=== PATIENT | male | born 1930 | race Caucasian/White ===

== ENCOUNTER 2017-04-23 12:29 | Emergency (ER) | payer MEDICARE, OTHER ==
[~2017-04-23] VITALS: Ht 172.7 cm; Wt 90.0 kg
[2017-04-23 12:37] VITALS: BP 229/105; PULSE 78; RESP 18
[2017-04-23 12:52] VITALS: BP 218/102; PULSE 68; RESP 16; O2SAT 97
[2017-04-23 13:21] LABS: AUTOMATED NEUTROPHIL # 4.7 TH/MM3 (1.8-7.7); BASOPHIL # 0.1 TH/MM3 (0-0.2); BASOPHIL % 0.6 % (0.0-2.0); EOSINOPHIL # 0.2 TH/MM3 (0-0.4); HEMATOCRIT 45.5 % (39.0-51.0); HEMOGLOBIN 15.2 GM/DL (13.0-17.0); LYMPH % 41.1 % (9.0-44.0); MEAN CELL VOLUME 92.3 FL (80.0-100.0); MEAN CORPUSCULAR HEMOGLOBIN 30.9 PG (27.0-34.0); MEAN CORPUSCULAR HGB CONC 33.4 % (32.0-36.0); MEAN PLATELET VOLUME 9.6 FL (7.0-11.0); MONOCYTE # 0.8 TH/MM3 (0-0.9); NEUT % 48.3 % (16.0-70.0); PLATELET COUNT 237 TH/MM3 (150-450); RED BLOOD COUNT 4.93 MIL/MM3 (4.50-5.90); RED CELL DISTRIBUTION WIDTH 13.6 % (11.6-17.2); WHITE BLOOD COUNT 9.7 TH/MM3 (4.0-11.0)
--- NOTE | 2017-04-23 13:21 | PD ---
HPI Chief Complaint: Hypertension Time Seen by Provider: 12:47 Travel History International Travel<30 days: No Contact w/Intl Traveler<30days: No Traveled to known affect area: No History of Present Illness HPI 86-year-old male with PMH of DM, HTN presents to the ED for evaluation of high blood pressures. Patient states BP is been elevated for approximately one week. On presentation he denies headaches, dizziness, vision changes, fever, chills, chest pain, palpitations, abdominal pain, nausea, vomiting, lower extremity edema. He states that he was seen at the [place] today. He was there concerning an episode of garbled speech approximately one week ago. Patient states that he was on his knees in the garden pulling weeds. He states that he was otherwise asymptomatic. Symptoms resolved in approximately 20 minutes with rest. PFSH Past Medical History Hx Anticoagulant Therapy: No Arthritis: Yes (OSTEOARTHRITIS ) Cardiovascular Problems: Yes (HTN ) High Cholesterol: Yes Diabetes: Yes Patient Takes Glucophage: Yes Diminished Hearing: No Gastrointestinal Disorders: Yes (BENIGN NEOPLASM LARGE BOWEL ) Hypertension: Yes Respiratory: Yes (IS ) Immunizations Current: No Tetanus Vaccination: Unknown Influenza Vaccination: Yes Past Surgical History Abdominal Surgery: Yes (R HERNIA REPAIR ) Eye Surgery: Yes (EYE SURGERY ) Joint Replacement: Yes (R HIP REPLACEMENT ) Tonsillectomy: Yes Social History Alcohol Use: Yes (BEER EVERY 2 WEEKS ) Tobacco Use: Yes (QUIT 40 YEARS AGO ) Substance Use: No Allergies-Medications (Allergen,Severity, Reaction): Coded Allergies: No Known Allergies (Unverified , 04/23/17) Review of Systems Except as stated in HPI: all other systems reviewed are Neg Physical Exam Narrative GENERAL: Well-nourished, well-developed white male in no acute distress. SKIN: Focused skin assessment warm/dry. Hearing aids in place bilaterally. HEAD: Normocephalic. EYES: No scleral icterus. No injection or drainage. PERRLA. EOMI. NECK: Supple, trachea midline. No JVD or lymphadenopathy. CARDIOVASCULAR: Regular rate and rhythm without murmurs, gallops, or rubs. RESPIRATORY: Breath sounds clear and equal bilaterally. No accessory muscle use. GASTROINTESTINAL: Abdomen soft, non-tender, nondistended. Active bowel sounds. MUSCULOSKELETAL: No cyanosis, or edema. Moves extremities spontaneously. NEUROLOGICAL: Awake and alert. Cranial nerves II through XII intact. Motor and sensory grossly within normal limits. Five out of 5 muscle strength in all muscle groups. Normal speech. BACK: Nontender without obvious deformity. No CVA tenderness. Data Data Last Documented VS Vital Signs Date Time Temp Pulse Resp B/P (MAP) Pulse Ox O2 Delivery O2 Flow Rate FiO2 04/23/17 14:00 69 18 158/98 (118) 95 04/23/17 13:30 Room Air Orders Orders Electrocardiogram (04/23/17 12:47) Complete Blood Count With Diff (04/23/17 12:47) Comprehensive Metabolic Panel (04/23/17 12:47) Ckmb (Isoenzyme) Profile (04/23/17 12:47) Troponin I (04/23/17 12:47) Act Partial Throm Time (Ptt) (04/23/17 12:47) Prothrombin Time / Inr (Pt) (04/23/17 12:47) Chest, Single Ap (04/23/17 12:47) Ct Brain W/O Iv Contrast(Rout) (04/23/17 12:47) Ecg Monitoring (04/23/17 12:47) Iv Access Insert/Monitor (04/23/17 12:47) Oximetry (04/23/17 12:47) Clonidine (Catapres) (04/23/17 13:45) CKMB (04/23/17 13:05) CKMB% (04/23/17 13:05) Ed Discharge Order (04/23/17 14:10) Labs Laboratory Tests Test 04/23/17 13:05 White Blood Count 9.7 TH/MM3 Red Blood Count 4.93 MIL/MM3 Hemoglobin 15.2 GM/DL Hematocrit 45.5 % Mean Corpuscular Volume 92.3 FL Mean Corpuscular Hemoglobin 30.9 PG Mean Corpuscular Hemoglobin Concent 33.4 % Red Cell Distribution Width 13.6 % Platelet Count 237 TH/MM3 Mean Platelet Volume 9.6 FL Neutrophils (%) (Auto) 48.3 % Lymphocytes (%) (Auto) 41.1 % Monocytes (%) (Auto) 8.0 % Eosinophils (%) (Auto) 2.0 % Basophils (%) (Auto) 0.6 % Neutrophils # (Auto) 4.7 TH/MM3 Lymphocytes # (Auto) 4.0 TH/MM3 Monocytes # (Auto) 0.8 TH/MM3 Eosinophils # (Auto) 0.2 TH/MM3 Basophils # (Auto) 0.1 TH/MM3 CBC Comment DIFF FINAL Differential Comment Prothrombin Time 10.6 SEC Prothromb Time International Ratio 1.0 RATIO Activated Partial Thromboplast Time 26.1 SEC Blood Urea Nitrogen 12 MG/DL Creatinine 1.11 MG/DL Random Glucose 80 MG/DL Total Protein 7.6 GM/DL Albumin 4.3 GM/DL Calcium Level 9.3 MG/DL Alkaline Phosphatase 96 U/L Aspartate Amino Transf (AST/SGOT) 23 U/L Alanine Aminotransferase (ALT/SGPT) 35 U/L Total Bilirubin 1.6 MG/DL Sodium Level 141 MEQ/L Potassium Level 4.3 MEQ/L Chloride Level 108 MEQ/L Carbon Dioxide Level 24.6 MEQ/L Anion Gap 8 MEQ/L Estimat Glomerular Filtration Rate 63 ML/MIN Total Creatine Kinase 127 U/L Creatine Kinase MB 2.3 NG/ML Troponin I LESS THAN 0.02 NG/ML MDM Medical Decision Making Medical Screen Exam Complete: Yes Emergency Medical Condition: Yes Differential Diagnosis TIA versus hypertension versus hypertensive urgency versus other Narrative Course 86-year-old male with PMH of DM, HTN presents to the ED for evaluation of high blood pressures. Patient states BP has been elevated for ~one week. On presentation he denies headaches, dizziness, vision changes, fever, chills, chest pain, palpitations, abdominal pain, nausea, vomiting, lower extremity edema. [facility], concerning a 20 minute episode of garbled speech one week ago while pulling weeds. Resolved spontaneously. States that he had no other symptoms at that time. Patient is asymptomatic on presentation. Pulse 78, BP 229/105, 97% on room air on presentation. No focal neuro deficits noted. Exam reassuring. EKG rate 71, sinus rhythm. Normal intervals. Normal axis. No acute ST changes. Reviewed by Dr. Perez CXR: No acute cardiopulmonary disease per radiology read. Cardiac enzymes: Negative 1 CBC: Unremarkable. Coags: INR 1.0 CMP: No concerning abnormalities CT brain: Senescent changes with prominent periventricular small vessel ischemic white matter demyelination. Bilateral basal ganglia calcifications, nonspecific. No acute intracranial abnormality per radiology read. 0.1 mcg clonidine was administered. Patient BP 158/98 on recheck. I discussed the work up with the patient and recommended observation admission for further evaluation. The patient does not want to be admitted. He states that he would rather have outpatient evaluation. The patient is instructed to resume his at home medications, including aspirin, follow up with the [place] PCP and neurologist. He indicated understanding of the instructions and is agreeable to the care plan. He is stable and discharged home. Diagnosis Primary Impression: Hypertensive urgency Referrals: Neurologist Primary Care Physician [place] [facility] Patient Instructions: General Instructions, Hypertension (ED) Additional Instructions: Rest, hydrate. Resume normal, gentle activities as tolerated. Resume outpatient medications, including daily aspirin, as prescribed. [facility] Return to the ED for worsening symptoms or any urgent/ emergent medical condition. Disposition: 01 DISCHARGE HOME Condition: Stable Vicky lAlen Apr 23, 2017 13:21
[2017-04-23 13:30] VITALS: BP 165/102; PULSE 67; RESP 18; O2SAT 98
[2017-04-23 13:32] LABS: PROTHROMBIN TIME - PATIENT 10.6 SEC (9.8-11.6)
--- NOTE | 2017-04-23 13:33 | RADRPT ---
EXAM DATE/TIME: 04/23/2017 13:06 [facility] COMPARISON: No previous studies available for comparison. INDICATIONS : Palpitations. MEDICAL HISTORY : Hypertension. Hypercholesterolemia. SURGICAL HISTORY : None. ENCOUNTER: Initial ACUITY: 2 days PAIN SCORE: 0/10 LOCATION: Bilateral chest FINDINGS: A single view of the chest demonstrates the lungs to be symmetrically aerated without evidence of mas s, infiltrate or effusion. The cardiomediastinal contours are unremarkable. Osseous structures are intact. CONCLUSION: 1. No acute cardiopulmonary disease. Alexsander Miller MD on April 23, 2017 at 13:30 Board Certified Radiologist. This report was verified electronically.
--- NOTE | 2017-04-23 13:37 | RADRPT ---
EXAM DATE/TIME: 04/23/2017 13:22 [facility] COMPARISON: No previous studies available for comparison. INDICATIONS : Altered mental status. RADIATION DOSE: 56.35 CTDIvol (mGy) MEDICAL HISTORY : Hypertension. Diabetes mellitus type 2. SURGICAL HISTORY : None. ENCOUNTER: Initial ACUITY: 1 day PAIN SCALE: 0/10 LOCATION: cranial TECHNIQUE: Multiple contiguous axial images were obtained of the head. Using automated exposure control and adj ustment of the mA and/or kV according to patient size, radiation dose was kept as low as reasonably a chievable to obtain optimal diagnostic quality images. DICOM format image data is available electro [facility] and clinically for review and comparison. FINDINGS: CEREBRUM: Mild diffuse cerebral atrophy. Prominent periventricular white matter hypodensities. Bilateral vasoge angelita calcifications. The ventricles are normal for age. No evidence of midline shift, mass lesion, he morrhage or acute infarction. No extra-axial fluid collections are seen. POSTERIOR FOSSA: The cerebellum and brainstem are intact. The 4th ventricle is midline. The cerebellopontine angle i s unremarkable. EXTRACRANIAL: The visualized portion of the orbits is intact. SKULL: The calvaria is intact. No evidence of skull fracture. CONCLUSION: 1. Senescent changes with prominent periventricular small vessel ischemic white matter demyelination. 2. Bilateral basal ganglia calcifications. This finding is nonspecific. 3. No acute intracranial abnormality. Alexsander Miller MD on April 23, 2017 at 13:33 Board Certified Radiologist. This report was verified electronically.
[2017-04-23] MEDS ORDERED: cloNIDine HCL 0.1 MG TAB PO ONE (13:45)
[2017-04-23 13:53] LABS: ALBUMIN 4.3 GM/DL (3.4-5.0); AST (GOT) 23 U/L (15-37); BICARBONATE 24.6 MEQ/L (21.0-32.0); BLOOD UREA NITROGEN 12 MG/DL (7-18); CALCIUM 9.3 MG/DL (8.5-10.1); CHLORIDE 108 MEQ/L (98-107); CREATININE 1.11 MG/DL (0.60-1.30); GLOMERULAR FILTRATION RATE 63 ML/MIN (>89); GLUCOSE,RANDOM 80 MG/DL (74-106); SODIUM (NA) 141 MEQ/L (136-145)
[2017-04-23 13:58] LABS: ALKALINE PHOSPHATASE 96 U/L (45-117); ALT (GPT) 35 U/L (12-78); TOTAL BILIRUBIN ADULT 1.6 MG/DL (0.2-1.0); TOTAL PROTEIN 7.6 GM/DL (6.4-8.2); TROPONIN I LESS THAN 0.02 NG/ML (0.02-0.05)
[2017-04-23 14:00] VITALS: BP 158/98; PULSE 69; RESP 18; O2SAT 95
--- NOTE | 2017-04-23 14:07 | PD ---
Physical Exam Date Seen by Provider: Apr 23, 2017 Time Seen by Provider: 12:00 Narrative I, Dr. Perez, have reviewed the advance practice practitioner's documentation and am in agreement, met with the patient face to face, made the diagnosis, and the medical decision making was done by me. *My assessment and Findings: Patient seen and evaluated with PA, please see PA note for further details, here because of fairly elevated blood pressures, sent in by his physician. He is reporting no chest pains or trouble breathing currently. EKG shows NSR, no ST elevation or depression, and no arrhythmias. No significant T-wave inversions. Laboratory Tests Test 04/23/17 13:05 Total Bilirubin 1.6 MG/DL (0.2-1.0) Chloride Level 108 MEQ/L (98-107) Estimat Glomerular Filtration Rate 63 ML/MIN (>89) Troponin I LESS THAN 0.02 NG/ML Last [address] 04/23/171246 Signed Impressions: Service Date/Time: Sunday, April 23, 2017 13:22 - CONCLUSION: 1. Senescent changes with prominent periventricular small vessel ischemic white matter demyelination. 2. Bilateral basal ganglia calcifications. This finding is nonspecific. 3. No acute intracranial abnormality. Alexsander Miller MD Chest X-Ray 04/23/171246 Signed Impressions: Service Date/Time: Sunday, April 23, 2017 13:06 - CONCLUSION: 1. No acute cardiopulmonary disease. Alexsander Miller MD Patient was given clonidine in the ER with good BP response. Lab work and CAT scans were otherwise unremarkable. He is asymptomatic in the ER and has no focal neurological deficits. At this point, we have talked to the patient regarding admission for further blood pressure control and TIA evaluation considering he had a history of one week ago having garbled speech. However, patient is declining inpatient evaluation. We will release him and have him stay on aspirin and follow-up with primary care physician for evaluation. He will need better blood pressure control as well. Return for any worsening in symptoms, chest pains, trouble breathing, and new issues as needed. The plan and the risks were discussed with him and he states understanding. Data Data Last Documented VS Vital Signs Date Time Temp Pulse Resp B/P (MAP) Pulse Ox O2 Delivery O2 Flow Rate FiO2 04/23/17 13:05 Room Air 04/23/17 12:52 68 16 218/102 (140) 97 Orders Orders Electrocardiogram (04/23/17 ) Electrocardiogram (04/23/17 12:47) Complete Blood Count With Diff (04/23/17 12:47) Comprehensive Metabolic Panel (04/23/17 12:47) Ckmb (Isoenzyme) Profile (04/23/17 12:47) Troponin I (04/23/17 12:47) Act Partial Throm Time (Ptt) (04/23/17 12:47) Prothrombin Time / Inr (Pt) (04/23/17 12:47) Urinalysis - C+S If Indicated (04/23/17 12:47) Chest, Single Ap (04/23/17 12:47) Ct Brain W/O Iv Contrast(Rout) (04/23/17 12:47) Ecg Monitoring (04/23/17 12:47) Iv Access Insert/Monitor (04/23/17 12:47) Oximetry (04/23/17 12:47) Clonidine (Catapres) (04/23/17 13:45) CKMB (04/23/17 13:05) CKMB% (04/23/17 13:05) Labs Laboratory Tests Test 04/23/17 13:05 White Blood Count 9.7 TH/MM3 Red Blood Count 4.93 MIL/MM3 Hemoglobin 15.2 GM/DL Hematocrit 45.5 % Mean Corpuscular Volume 92.3 FL Mean Corpuscular Hemoglobin 30.9 PG Mean Corpuscular Hemoglobin Concent 33.4 % Red Cell Distribution Width 13.6 % Platelet Count 237 TH/MM3 Mean Platelet Volume 9.6 FL Neutrophils (%) (Auto) 48.3 % Lymphocytes (%) (Auto) 41.1 % Monocytes (%) (Auto) 8.0 % Eosinophils (%) (Auto) 2.0 % Basophils (%) (Auto) 0.6 % Neutrophils # (Auto) 4.7 TH/MM3 Lymphocytes # (Auto) 4.0 TH/MM3 Monocytes # (Auto) 0.8 TH/MM3 Eosinophils # (Auto) 0.2 TH/MM3 Basophils # (Auto) 0.1 TH/MM3 CBC Comment DIFF FINAL Differential Comment Prothrombin Time 10.6 SEC Prothromb Time International Ratio 1.0 RATIO Activated Partial Thromboplast Time 26.1 SEC Blood Urea Nitrogen 12 MG/DL Creatinine 1.11 MG/DL Random Glucose 80 MG/DL Total Protein 7.6 GM/DL Albumin 4.3 GM/DL Calcium Level 9.3 MG/DL Alkaline Phosphatase 96 U/L Aspartate Amino Transf (AST/SGOT) 23 U/L Alanine Aminotransferase (ALT/SGPT) 35 U/L Total Bilirubin 1.6 MG/DL Sodium Level 141 MEQ/L Potassium Level 4.3 MEQ/L Chloride Level 108 MEQ/L Carbon Dioxide Level 24.6 MEQ/L Anion Gap 8 MEQ/L Estimat Glomerular Filtration Rate 63 ML/MIN Total Creatine Kinase 127 U/L Troponin I LESS THAN 0.02 NG/ML MDM Medical Record Reviewed: Yes Supervised Visit with TESSY: Yes Diagnosis Primary Impression: Hypertensive urgency Disposition: 01 DISCHARGE HOME Condition: Stable Miriam Perez MD Apr 23, 2017 14:07
[2017-04-23 15:00] VITALS: BP 171/93
[2017-04-23] MEDS ORDERED: SIMV40TA PO (15:04)
[2017-04-23] MEDS ORDERED: REFR0.5D9 EACH EYE (15:04)
[2017-04-23] MEDS ORDERED: METF1000 PO (15:04)
[2017-04-23] MEDS ORDERED: LOSA50TA PO (15:04)
--- NOTE | 2017-04-24 14:34 | EKG ---
Date Performed: 04/23/2017 Time Performed: 12:42:29 PTAGE: 86 years EKG: Sinus rhythm NONSPECIFIC T-WAVE ABNORMALITY BORDERLINE ECG NO PREVIOUS TRACING DOCTOR: Mynor Gunter Interpretating Date/Time 04/24/2017 14:29:38
== END 2017-04-23 15:00 | disposition home or self-care (01) ==
LOC: NEPC 12:29
DX: I16.0 Hypertensive urgency (principal); E11.9 Type 2 diabetes mellitus without complications; M19.90 Unspecified osteoarthritis, unspecified site; E78.00 Pure hypercholesterolemia, unspecified; R94.31 Abnormal electrocardiogram [ECG] [EKG]; Z87.891 Personal history of nicotine dependence
CPT/HCPCS: 70450; 71045; 80053; 82550; 82552; 84484; 85025; 85610; 85730; 93005; 99285